=== PATIENT | female | born 1995 | race Two or more races ===

== ENCOUNTER 2022-12-10 19:43 | Emergency (ER) | payer MEDICAID, OTHER ==
[~2022-12-10] VITALS: Ht 165.1 cm; Wt 63.5 kg
[2022-12-10] MEDS ORDERED: ACETAMINOPHEN ES 500 MG TABLET ONE (21:30)
[2022-12-10] MEDS ORDERED: IBUPROFEN 600 MG TABLET ONE (21:30)
[2022-12-10] MEDS ORDERED: IBUPROFEN 600 MG TABLET PO ONE (21:30)
[2022-12-10] MEDS ORDERED: ACETAMINOPHEN ES 500 MG TABLET PO ONE (21:30)
[2022-12-10] MEDS ORDERED: IBUP-1953 PO (22:53)
--- NOTE | 2022-12-10 23:12 | NUR ---
Patient discharged to home in stable condition. Written and verbal after care instructions given. Patient verbalizes understanding of instruction.
[2022-12-10 23:16] VITALS: BP 117/68
== END 2022-12-10 23:18 | disposition home or self-care (01) ==
LOC: ER 19:44 → EDBD 19:44 → ER 23:18
DX: S39.012A Strain of muscle, fascia and tendon of lower back, initial encounter (principal); S60.011A Contusion of right thumb without damage to nail, initial encounter; S00.83XA Contusion of other part of head, initial encounter; V49.9XXA Car occupant (driver) (passenger) injured in unspecified traffic accident, initial encounter; Y93.89 Activity, other specified; Y92.89 Other specified places as the place of occurrence of the external cause; Y99.8 Other external cause status
CPT/HCPCS: 70486-TC; 72131-TC; 73140-TC; 84703-TC